=== PATIENT | female | born 1970 | race Caucasian/White ===

== ENCOUNTER 2019-07-09 13:11 | Emergency (ER) | payer SELFPAY ==
[2019-07-09] MEDS ORDERED: Sodium Chloride 0.9% 1,000 ML IV ONE (13:31)
[2019-07-09 14:21] LABS: BLOOD UREA NITROGEN,BUN 11 mg/dL (7.0-18.0); CARBON DIOXIDE,CO2 24.1 mmol/L (21.0-32.0); CHLORIDE,CL 100 mmol/L (98-107); SODIUM,NA 134 mmol/L (136-145)
[2019-07-09 14:29] LABS: GLUCOSE RANDOM 537 mg/dL (74-106)
--- NOTE | 2019-07-09 14:46 | CR ---
Left knee: AP and lateral views left knee were obtained. Comparison: No prior left knee exam. Joint spaces are not seen well in profile. Within this limitation, there is felt to be minimal medial joint space narrowing as compared the lateral joint. No joint effusion is seen. No discrete fracture or other abnormality is appreciated. Impression: 1. Minimal medial joint space narrowing is suggested. 2. No definite acute abnormality is appreciated on this 2 view left knee exam. Diagnostic code #2 This report was dictated in [place] Standard Time
--- NOTE | 2019-07-09 14:46 | CR ---
Right knee: AP and lateral views of the right knee were obtained. Comparison: No prior right knee imaging is available. Medial joint not well seen in profile but felt to be minimally narrowed as compared to the lateral joint. Surgical clips are seen within the posterior soft tissues. No joint effusion is seen. No acute fracture or other bony abnormality is identified. Impression: 1. Probable minimal narrowing of the medial joint. 2. No definite acute abnormality is appreciated. Diagnostic code #2 This report was dictated in [place] Standard Time
--- NOTE | 2019-07-09 14:57 | CT ---
Head CT Technique: Multiple axial sections through the brain were obtained. Intravenous contrast was not utilized. Comparison: No prior intracranial imaging is available. Findings: Ventricles along with basal cisterns and sulci over the convexities appear within normal limits for the patient's age. No abnormal parenchymal densities are seen. No evidence of intracranial hemorrhage. No midline shift or mass-effect is seen. Bone window settings were reviewed. Visualized mastoid sinuses show nothing acute. Mild mucosal thickening is seen within portions of the ethmoid and maxillary sinuses. No acute calvarial abnormality is appreciated. Impression: 1. Mild paranasal sinus findings most likely representing mild chronic sinusitis. 2. No acute intracranial abnormality is identified. Diagnostic code #2 This report was dictated in [place] Standard Time
--- NOTE | 2019-07-09 15:02 | CT ---
CT facial bones Technique: Multiple axial sections through the facial bones were obtained. Reconstructed coronal and sagittal images were reviewed. Comparison: No prior facial bone exam. Findings: Mild mucosal thickening is seen within the ethmoid sinuses and within both maxillary sinuses. Prior cervical spine surgery is noted. Right and left globes are symmetric. No retrobulbar abnormality is seen. Mild nasal septal deviation is seen. No facial bone fracture is appreciated. Impression: 1. Probable mild chronic sinusitis. 2. Mild nasal septal deviation and prior cervical spine surgery. 3. Nothing acute is seen on CT study of the facial bones. Diagnostic code #2 This report was dictated in [place] Standard Time
--- NOTE | 2019-07-09 15:07 | EDM.PDOC ---
ED HPI GENERAL MEDICAL PROBLEM - General Chief Complaint: General Stated Complaint: FALL Time Seen by Provider: 07/09/19 13:22 Source of Information: Reports: Patient - History of Present Illness INITIAL COMMENTS - FREE TEXT/NARRATIVE: Pt with pmh of type 1 DM presents after a fall. Pt reports tripping on a step and falling striking both knees and her upper face. No LOC. Pt reports not being able to afford her insulin due to lack of insurance for the last month and her bg has been in the 500 range during this time. no other complaints. face Pain Score (Numeric/FACES): 6 - Related Data Allergies Allergy/AdvReac Type Severity Reaction Status Date / Time erythromycin base Allergy Tachycardia Verified 07/09/19 13:20 naproxen Allergy Tachycardia Verified 07/09/19 13:20 Home Meds: Home Meds . [No Known Home Meds] 07/09/19 [History] Past Medical History Other Musculoskeletal History: c7 fusion Endocrine/Metabolic History: Reports: Diabetes, Type I - Infectious Disease History Infectious Disease History: Reports: Chicken Pox - Past Surgical History HEENT Surgical History: Reports: Tonsillectomy Social & Family History - Family History Family Medical History: Noncontributory - Tobacco Use Smoking Status *Q: Never Smoker - Recreational Drug Use Recreational Drug Use: No ED ROS GENERAL - Review of Systems Review Of Systems: See Below Constitutional: Reports: No Symptoms Respiratory: Reports: No Symptoms Cardiovascular: Reports: No Symptoms Endocrine: Reports: High Glucose. Denies: Polydypsia, Polyuria GI/Abdominal: Reports: No Symptoms Musculoskeletal: Reports: Joint Pain Neurological: Reports: No Symptoms ED EXAM, GENERAL - Physical Exam Exam: See Below General Appearance: Alert, WD/WN, No Apparent Distress Nose: Other (abrasion, no septal hematoma) Throat/Mouth: Other (tooth #9 has garzon II partial fracture) Head: Atraumatic, Normocephalic Neck: Normal Inspection, Non-Tender, Full Range of Motion. No: Tender Midline Respiratory/Chest: No Respiratory Distress, Lungs Clear, Normal Breath Sounds Cardiovascular: Regular Rate, Rhythm, No Murmur GI/Abdominal: Soft, Non-Tender, No Distention Extremities: Other (knees ttp) Neurological: Alert, Oriented, Normal Cognition, Normal Gait ED GENERAL MEDICAL PROCEDURES - Additional/Other Procedure(s) Other (Free Text) Procedure(s): Partial Garzon II fracture of tooth 9 filled with calcium hydroxide paste. Layer of dermabond applied for adhesive. Course - Vital Signs Last Recorded V/S: Last Vital Signs Temp 96.4 F L 07/09/19 13:20 Pulse 75 07/09/19 13:20 Resp 16 07/09/19 13:20 BP 136/71 07/09/19 13:20 Pulse Ox 98 07/09/19 13:20 - Orders/Labs/Meds Labs: Laboratory Tests 07/09/19 07/09/19 07/09/19 Range/Units 13:40 13:40 13:40 WBC 9.01 (4.0-11.0) K/uL RBC 4.95 (4.30-5.90) M/uL Hgb 13.5 (12.0-16.0) g/dL Hct 41.1 (36.0-46.0) % MCV 83.0 (80.0-98.0) fL MCH 27.3 (27.0-32.0) pg MCHC 32.8 (31.0-37.0) g/dL RDW Std Deviation 45.1 (28.0-62.0) fl RDW Coeff of José Manuel 15 (11.0-15.0) % Plt Count 307 (150-400) K/uL MPV 12.00 (7.40-12.00) fL Neut % (Auto) 60.3 (48.0-80.0) % Lymph % (Auto) 24.1 (16.0-40.0) % [place] % (Auto) 8.4 (0.0-15.0) % Eos % (Auto) 6.3 (0.0-7.0) % Baso % (Auto) 0.9 (0.0-1.5) % Neut # (Auto) 5.4 (1.4-5.7) K/uL Lymph # (Auto) 2.2 (0.6-2.4) K/uL [place] # (Auto) 0.8 (0.0-0.8) K/uL Eos # (Auto) 0.6 (0.0-0.7) K/uL Baso # (Auto) 0.1 (0.0-0.1) K/uL Nucleated RBC % 0.0 /100WBC Nucleated RBCs # 0 K/uL Sodium 134 L (136-145) mmol/L Potassium 4.0 (3.5-5.1) mmol/L Chloride 100 (98-107) mmol/L Carbon Dioxide 24.1 (21.0-32.0) mmol/L BUN 11 (7.0-18.0) mg/dL Creatinine 0.7 (0.6-1.0) mg/dL Est Cr Clr Drug Dosing 93.01 mL/min Estimated GFR (MDRD) > 60.0 ml/min Glucose 537 H* (74-106) mg/dL POC Glucose (60-110) mg/dL Calcium 9.1 (8.5-10.1) mg/dL Total Bilirubin 0.3 (0.2-1.0) mg/dL AST 10 L (15-37) IU/L ALT 18 (14-63) IU/L Alkaline Phosphatase 95 (46-116) U/L Total Protein 7.4 (6.4-8.2) g/dL Albumin 3.7 (3.4-5.0) g/dL Globulin 3.7 (2.6-4.0) g/dL Albumin/Globulin Ratio 1.0 (0.9-1.6) Ketones NEGATIVE (NEG) 07/09/19 07/09/19 Range/Units 15:37 16:15 WBC (4.0-11.0) K/uL RBC (4.30-5.90) M/uL Hgb (12.0-16.0) g/dL Hct (36.0-46.0) % MCV (80.0-98.0) fL MCH (27.0-32.0) pg MCHC (31.0-37.0) g/dL RDW Std Deviation (28.0-62.0) fl RDW Coeff of José Manuel (11.0-15.0) % Plt Count (150-400) K/uL MPV (7.40-12.00) fL Neut % (Auto) (48.0-80.0) % Lymph % (Auto) (16.0-40.0) % [place]eman % (Auto) (0.0-15.0) % Eos % (Auto) (0.0-7.0) % Baso % (Auto) (0.0-1.5) % Neut # (Auto) (1.4-5.7) K/uL Lymph # (Auto) (0.6-2.4) K/uL Hardeman # (Auto) (0.0-0.8) K/uL Eos # (Auto) (0.0-0.7) K/uL Baso # (Auto) (0.0-0.1) K/uL Nucleated RBC % /100WBC Nucleated RBCs # K/uL Sodium (136-145) mmol/L Potassium (3.5-5.1) mmol/L Chloride (98-107) mmol/L Carbon Dioxide (21.0-32.0) mmol/L BUN (7.0-18.0) mg/dL Creatinine (0.6-1.0) mg/dL Est Cr Clr Drug Dosing mL/min Estimated GFR (MDRD) ml/min Glucose (74-106) mg/dL POC Glucose 333 H 317 H (60-110) mg/dL Calcium (8.5-10.1) mg/dL Total Bilirubin (0.2-1.0) mg/dL AST (15-37) IU/L ALT (14-63) IU/L Alkaline Phosphatase (46-116) U/L Total Protein (6.4-8.2) g/dL Albumin (3.4-5.0) g/dL Globulin (2.6-4.0) g/dL Albumin/Globulin Ratio (0.9-1.6) Ketones (NEG) Meds: Medications Discontinued Medications Generic Name Dose Route Start Last Admin Trade Name Kashq PRN Reason Stop Dose Admin Sodium Chloride 1,000 mls @ 999 mls/hr 07/09/19 13:31 07/09/19 14:05 Normal Saline IV 07/09/19 14:31 999 mls/hr BOLUS ONE Administration Insulin Aspart 0 unit 07/09/19 15:30 07/09/19 15:42 Novolog SUBCUT 07/09/19 15:31 8 units TIDAC ONE Administration Protocol Ketorolac Tromethamine 30 mg 07/09/19 15:21 07/09/19 15:27 Toradol IVPUSH 07/09/19 15:22 30 mg ONETIME ONE Administration Octyl Cyanoacrylate 1 applic 07/09/19 15:56 07/09/19 16:18 Dermabond Advance TOP 07/09/19 15:57 1 applic ONETIME ONE Administration Octyl Cyanoacrylate Confirm 07/09/19 15:57 07/09/19 16:11 Dermabond Advance Administered 07/09/19 15:58 Not Given Dose 1 applic .ROUTE .STK-MED ONE - Re-Assessments/Exams Free Text/Narrative Re-Assessment/Exam: VS stable and PE as above. ED work up with labs and imaging unremarkable. Dental fracture sealed as above. Pt given Novolog pen and she understands its use and her TIDAC and SS doses. pt provided with dental followup and diabetic resources. Pt feels improved and is comfortable with discharge. Strict return precautions discussed should symptoms worsen or any concerns arise. Departure - Departure Time of Disposition: 16:05 Disposition: Home, Self-Care 01 Condition: Good Clinical Impression: Fall, Tooth fracture, Hyperglycemia due to type 1 diabetes mellitus - Discharge Information *PRESCRIPTION DRUG MONITORING PROGRAM REVIEWED*: Not Applicable *COPY OF PRESCRIPTION DRUG MONITORING REPORT IN PATIENT TRAM: Not Applicable Instructions: Hyperglycemia, [id number], Tooth Injuries Referrals: PCP,None [Primary Care Provider] - Forms: ED Department Discharge Additional Instructions: My general discharge The following information is given to patients seen in the emergency department who are being discharged to home. This information is to outline your options for follow-up care. We provide all patients seen in our emergency department with a follow-up referral. The need for follow-up, as well as the timing and circumstances, are variable depending upon the specifics of your emergency department visit. If you don't have a primary care physician on staff, we will provide you with a referral. We always advise you to contact your personal physician following an emergency department visit to inform them of the circumstance of the visit and for follow-up with them and/or the need for any referrals to a consulting specialist. The emergency department will also refer you to a specialist when appropriate. This referral assures that you have the opportunity for follow-up care with a specialist. All of these measure are taken in an effort to provide you with optimal care, which includes your follow-up. Under all circumstances we always encourage you to contact your private physician who remains a resource for coordinating your care. When calling for follow-up care, please make the office aware that this follow-up is from your recent emergency room visit. If for any reason you are refused follow-up, please contact the [facility] Emergency Department at and asked to speak to the emergency department charge nurse. Sepsis Event Note - Evaluation Sepsis Screening Result: No Definite Risk - Focused Exam Vital Signs: Vital Signs Temp Pulse Resp BP Pulse Ox 07/09/19 13:20 96.4 F L 75 16 136/71 98 Date Exam was Performed: 07/09/19 Time Exam was Performed: 20:07
[2019-07-09] MEDS ORDERED: Ketorolac 30 MG/ML SDV IVPUSH ONE (15:21)
[2019-07-09] MEDS ORDERED: Insulin Aspart 100 Units/ML 3 ML Pen SUBCUT ONE ×2 (15:26→15:30)
[2019-07-09] MEDS ORDERED: Octyl 2-Cyanoacrylate 1 Tube TOP ONE (15:56)
[2019-07-09] MEDS ORDERED: Octyl 2-Cyanoacrylate 1 Tube ONE (15:57)
== END 2019-07-09 16:18 | disposition home or self-care (01) ==
LOC: MW.ED 13:11
DX: S02.5XXA Fracture of tooth (traumatic), initial encounter for closed fracture (principal); E10.65 Type 1 diabetes mellitus with hyperglycemia; Z88.8 Allergy status to other drugs, medicaments and biological substances; W01.10XA Fall on same level from slipping, tripping and stumbling with subsequent striking against unspecified object, initial encounter
CPT/HCPCS: 36415; 70450; 70486; 73560; 80053; 82009; 82962; 85025; 93005; 96361; 96374; 99284; A9270; J1815; J1885; J7030

== ENCOUNTER 2021-04-13 17:19 | Emergency (ER) | payer BC ==
[2021-04-13] MEDS ORDERED: Sulfamethoxazole/Trimethoprim 800-160 MG Tab PO ONE (18:30)
--- NOTE | 2021-04-13 18:35 | EDM.PDOC ---
ED HPI GENERAL MEDICAL PROBLEM - General Chief Complaint: Skin Complaint Stated Complaint: INGROWN HAIR POSSIBLY INFECTED Time Seen by Provider: 04/13/21 18:27 - History of Present Illness INITIAL COMMENTS - FREE TEXT/NARRATIVE: HISTORY AND PHYSICAL: History of present illness: Is a 51-year-old female who presents ER today secondary to draining, redness and pain to her right axilla x2 to 3 days. Patient reports she has had these in the past. Patient reports that started draining yesterday. Patient reports that she had some pain and discomfort in that area. Patient reports that it feels warm to touch at night. Patient has any recent fevers, shakes, chills, nausea, vomiting, diarrhea. Patient denies any other symptomatology at this time. Patient does have a history of type 1 diabetes. Review of systems: As per history of present illness and below otherwise all systems reviewed and negative. Past medical history: As per history of present illness and as reviewed below otherwise noncontributory. Surgical history: As per history of present illness and as reviewed below otherwise noncontributory. Social history: No reported history of drug abuse. Family history: As per history of present illness and as reviewed below otherwise noncontributory. Physical exam: This patient was seen and evaluated during the 2019 SARS-CoV-2 novel coronavirus pandemic period. Community viral transmission is ongoing at time of this encounter and the emergency department is operating under pandemic response procedures. Constitutional: Patient is oriented to person, place, and time. Appears well- developed and well-nourished. No distress. HEENT: Moist mucous membranes Head: Normocephalic and atraumatic Eyes: Right eye exhibits no discharge. Left eye exhibits no discharge. No scleral icterus Neck: Normal range of motion. No tracheal deviation present. Cardiovascular: Normal rate and regular rhythm. Pulmonary: Effort normal, no respiratory distress. Abdominal: No distention Musculoskeletal: Normal range of motion Neurologic: Alert and oriented to person, place and time. Skin: [place], warm and dry. Psychiatric: Normal mood and affect. Behavior is normal. Judgment and thought content normal. Nursing note and vital signs have been reviewed Patient's ER physical exam is significant for a draining abscess that is about 3 x 3 cm with induration to the right axilla. I am unable to express a small amount of purulent material from the abscess. There is no fluctuance at this time. Diagnostics: [] Therapeutics: [] Assessment and plan: 51-year-old female who presents ER today with a history of diabetes and a right axillary abscess. It is currently draining. I have advised patient to continue warm soaks to the area and frequent bath to keep the area open. Patient will get started on Bactrim DS 2 tablets p.o. twice daily x10 days. Patient is to continue taking acetaminophen as needed for pain and discomfort. Patient is afebrile and is otherwise clinically hemodynamically stable for outpatient evaluation. Definitive disposition and diagnosis as appropriate pending reevaluation and review of above. - Related Data Allergies Allergy/AdvReac Type Severity Reaction Status Date / Time erythromycin base Allergy Tachycardia Verified 04/13/21 18:28 naproxen Allergy Tachycardia Verified 04/13/21 18:28 Home Meds: Home Meds Sulfamethoxazole/Trimethoprim [Bactrim Ds Tablet] 2 each PO BID #40 tablet 04/13/21 [Rx] Past Medical History Other Musculoskeletal History: c7 fusion Endocrine/Metabolic History: Reports: Diabetes, Type I - Infectious Disease History Infectious Disease History: Reports: Chicken Pox - Past Surgical History HEENT Surgical History: Reports: Tonsillectomy Social & Family History - Family History Family Medical History: No Pertinent Family History ED ROS GENERAL - Review of Systems Review Of Systems: See Below ED EXAM, SKIN/RASH Exam: See Below Course - Orders/Labs/Meds Orders: Active Orders 24 hr Category Date Time Status Sulfamethoxazole/Trimethoprim [Septra DS] Med 04/13/21 18:30 Once 2 tab PO ONETIME ONE Departure - Departure Time of Disposition: 18:33 Disposition: Home, Self-Care 01 Condition: Good Clinical Impression: Abscess - Discharge Information Instructions: Skin Abscess Additional Instructions: You were seen and evaluated in the ER today secondary to a skin abscess in your right armpit. You'll get started on Bactrim DS 2 tablets twice a day for 10 days. You can take acetaminophen as needed for pain discomfort. Please do your best to continue draining the abscess. You can apply warm soaks to the area and take frequent baths. You can stimulate the area by rubbing a warm cloth over the abscess. Please make an appointment to see your family doctor in 2 to 3 days for reevaluation. Please return to the ER if you start developing any new or concerning symptoms such as fever, increasing swelling or increasing pain. The following information is given to patients seen in the emergency department who are being discharged to home. This information is to outline your options for follow-up care. We provide all patients seen in our emergency department with a follow-up referral. The need for follow-up, as well as the timing and circumstances, are variable depending upon the specifics of your emergency department visit. If you don't have a primary care physician on staff, we will provide you with a referral. We always advise you to contact your personal physician following an emergency department visit to inform them of the circumstance of the visit and for follow-up with them and/or the need for any referrals to a consulting specialist. The emergency department will also refer you to a specialist when appropriate. This referral assures that you have the opportunity for follow-up care with a specialist. All of these measure are taken in an effort to provide you with optimal care, which includes your follow-up. Under all circumstances we always encourage you to contact your private physician who remains a resource for coordinating your care. When calling for follow-up care, please make the office aware that this follow-up is from your recent emergency room visit. If for any reason you are refused follow-up, please contact the [facility] Emergency Department at and asked to speak to the emergency department charge nurse. [facility] - Primary [facility] [address] [place] [address] [place] [address] - My Orders Last 24 Hours: My Active Orders 04/13/21 18:30 Sulfamethoxazole/Trimethoprim [Septra DS] 2 tab PO ONETIME ONE - Assessment/Plan Last 24 Hours: My Active Orders 04/13/21 18:30 Sulfamethoxazole/Trimethoprim [Septra DS] 2 tab PO ONETIME ONE
== END 2021-04-13 18:51 | disposition home or self-care (01) ==
LOC: MW.ED 17:19
DX: L02.411 Cutaneous abscess of right axilla (principal); E10.9 Type 1 diabetes mellitus without complications; Z88.1 Allergy status to other antibiotic agents; Z88.5 Allergy status to narcotic agent
CPT/HCPCS: 82947; 99283; A9270

== ENCOUNTER 2021-07-29 19:52 | Inpatient (IN) | payer SELFPAY ==
[2021-07-29] MEDS ORDERED: Lactated Ringers 1,000 ML IV STA ×2 (21:14→21:30)
[2021-07-29] MEDS ORDERED: VANCOmycin 2 GM/400 ML 2 GM in Premix Bag 1 BAG IV ONE (21:45)
[2021-07-29 22:07] LABS: BLOOD UREA NITROGEN,BUN 7 mg/dL (7.0-18.0); CARBON DIOXIDE,CO2 10.9 mmol/L (21.0-32.0); CHLORIDE,CL 94 mmol/L (98-107); GLUCOSE RANDOM 372 mg/dL (74-106); POTASSIUM,K 3.2 mmol/L (3.5-5.1); SODIUM,NA 128 mmol/L (136-145)
[2021-07-29] MEDS ORDERED: Insulin Regular in 0.9 % NACL 100 ML IV STA (22:12)
[2021-07-30] MEDS ORDERED: Potassium Chloride 40 MEQ in Dextrose 5%-Lactated Ringers 1,000 ML IV STA (00:10)
[2021-07-30 01:48] LABS: BLOOD UREA NITROGEN,BUN 6 mg/dL (7.0-18.0); CARBON DIOXIDE,CO2 9.5 mmol/L (21.0-32.0); CHLORIDE,CL 103 mmol/L (98-107); GLUCOSE RANDOM 275 mg/dL (74-106); POTASSIUM,K 2.9 mmol/L (3.5-5.1); SODIUM,NA 133 mmol/L (136-145)
[2021-07-30] MEDS: Insulin Regular in 0.9 % NACL 100 ML IV SCH ×2 (02:08→21:04)
[2021-07-30] MEDS ORDERED: Potassium Chloride 20 MEQ Tab.ER PO ONE ×3 (02:19→14:15)
[2021-07-30] MEDS ORDERED: Sodium Chloride 0.9% with KCl 1,000 ML IV SCH (02:30)
[2021-07-30] MEDS ORDERED: ceFAZolin/Dextrose,Iso-Osmotic 2 GM/50 ML Duplex Bag (Premix) IV SCH (06:30)
[2021-07-30 07:28] LABS: BLOOD UREA NITROGEN,BUN 6 mg/dL (7.0-18.0); CARBON DIOXIDE,CO2 14.8 mmol/L (21.0-32.0); CHLORIDE,CL 104 mmol/L (98-107); GLUCOSE RANDOM 255 mg/dL (74-106); POTASSIUM,K 2.7 mmol/L (3.5-5.1); SODIUM,NA 134 mmol/L (136-145)
[2021-07-30] MEDS ORDERED: Potassium Phos,M-Basic-D-Basic 3 MMOL/ML VIAL IV ONE ×2 (07:49→22:17)
[2021-07-30] MEDS ORDERED: Potassium Phosphates 30 MMOLE in Sodium Chloride 0.9% 250 ML IV ONE ×2 (08:30→10:30)
[2021-07-30] MEDS: Enoxaparin 40 MG/0.4 ML Syringe SUBCUT SCH (09:01)
[2021-07-30] MEDS: VANCOmycin 1.5 GM/300 ML 1.5 GM in Premix Bag 1 BAG IV SCH ×2 (09:02→22:29)
[2021-07-30] MEDS: Dextrose 5%-0.45% NaCl 1,000 ML IV SCH ×2 (10:15→17:35)
[2021-07-30] MEDS: Acetaminophen 325 MG Tab PO PRN ×2 (11:49→20:50)
[2021-07-30 13:50] LABS: BLOOD UREA NITROGEN,BUN 5 mg/dL (7.0-18.0); CARBON DIOXIDE,CO2 16.5 mmol/L (21.0-32.0); CHLORIDE,CL 106 mmol/L (98-107); GLUCOSE RANDOM 246 mg/dL (74-106); POTASSIUM,K 3.2 mmol/L (3.5-5.1); SODIUM,NA 135 mmol/L (136-145)
[2021-07-30] MEDS ORDERED: Lidocaine 1% PF 2 ML SDV INJECT ONE (14:45)
[2021-07-30] MEDS ORDERED: Lidocaine 1% 20 ML MDV ONE (16:38)
[2021-07-30 20:07] LABS: BLOOD UREA NITROGEN,BUN 3 mg/dL (7.0-18.0); CARBON DIOXIDE,CO2 19.1 mmol/L (21.0-32.0); CHLORIDE,CL 104 mmol/L (98-107); GLUCOSE RANDOM 259 mg/dL (74-106); POTASSIUM,K 2.8 mmol/L (3.5-5.1); SODIUM,NA 136 mmol/L (136-145)
[2021-07-30] MEDS ORDERED: Magnesium Sulfate (4.06 MEQ/ML) 5 GM/10 ML SDV IV ONE (22:43)
[2021-07-30] MEDS ORDERED: Magnesium Sulfate/Water 50 ML ONE (23:24)
[2021-07-31] MEDS: Dextrose 5%-0.45% NaCl 1,000 ML IV SCH ×3 (00:16→13:34)
[2021-07-31] MEDS ORDERED: Potassium Chloride 20 MEQ Tab.ER PO ONE ×2 (00:26→19:26)
[2021-07-31 01:25] LABS: BLOOD UREA NITROGEN,BUN 3 mg/dL (7.0-18.0); CARBON DIOXIDE,CO2 19.5 mmol/L (21.0-32.0); CHLORIDE,CL 104 mmol/L (98-107); GLUCOSE RANDOM 206 mg/dL (74-106); SODIUM,NA 135 mmol/L (136-145)
[2021-07-31 01:27] LABS: POTASSIUM,K 2.3 mmol/L (3.5-5.1)
[2021-07-31] MEDS: Phosphorus #1 250 MG Tab PO SCH ×3 (05:41→18:45)
[2021-07-31 06:20] LABS: BLOOD UREA NITROGEN,BUN 2 mg/dL (7.0-18.0); CARBON DIOXIDE,CO2 17.9 mmol/L (21.0-32.0); CHLORIDE,CL 104 mmol/L (98-107); GLUCOSE RANDOM 306 mg/dL (74-106); POTASSIUM,K 3.3 mmol/L (3.5-5.1); SODIUM,NA 136 mmol/L (136-145)
[2021-07-31] MEDS ORDERED: Potassium Chloride Riders 40 MEQ in Premix Bag 1 BAG IV ONE ×2 (06:28→14:50)
[2021-07-31] MEDS: Enoxaparin 40 MG/0.4 ML Syringe SUBCUT SCH (09:16)
[2021-07-31 09:32] LABS: BLOOD UREA NITROGEN,BUN 2 mg/dL (7.0-18.0); CARBON DIOXIDE,CO2 20.4 mmol/L (21.0-32.0); CHLORIDE,CL 104 mmol/L (98-107); GLUCOSE RANDOM 287 mg/dL (74-106); POTASSIUM,K 3.3 mmol/L (3.5-5.1); SODIUM,NA 137 mmol/L (136-145)
[2021-07-31] MEDS: VANCOmycin 1.5 GM/300 ML 1.5 GM in Premix Bag 1 BAG IV SCH ×2 (10:50→22:37)
[2021-07-31 13:20] LABS: BLOOD UREA NITROGEN,BUN 1 mg/dL (7.0-18.0); CHLORIDE,CL 105 mmol/L (98-107); GLUCOSE RANDOM 211 mg/dL (74-106); POTASSIUM,K 2.9 mmol/L (3.5-5.1); SODIUM,NA 139 mmol/L (136-145)
[2021-07-31] MEDS ORDERED: Lactated Ringers 1,000 ML IV ONE (13:54)
[2021-07-31] MEDS ORDERED: Glucagon,Human Recombinant 1 MG Vial IM PRN (13:55)
[2021-07-31] MEDS ORDERED: 50% Dextrose in Water 50 ML Syringe IVPUSH PRN (13:55)
[2021-07-31] MEDS ORDERED: Insulin Glargine,Human Rec. Analog 100 Units/ML 3 ML Pen SUBCUT ONE (13:56)
[2021-07-31] MEDS ORDERED: Lactated Ringers 1,000 ML IV SCH (15:00)
[2021-07-31 19:03] LABS: BLOOD UREA NITROGEN,BUN 1 mg/dL (7.0-18.0); CARBON DIOXIDE,CO2 21.3 mmol/L (21.0-32.0); CHLORIDE,CL 105 mmol/L (98-107); GLUCOSE RANDOM 171 mg/dL (74-106); POTASSIUM,K 3.4 mmol/L (3.5-5.1); SODIUM,NA 139 mmol/L (136-145)
[2021-08-01 07:20] LABS: BLOOD UREA NITROGEN,BUN 1 mg/dL (7.0-18.0); CARBON DIOXIDE,CO2 24.4 mmol/L (21.0-32.0); CHLORIDE,CL 105 mmol/L (98-107); GLUCOSE RANDOM 148 mg/dL (74-106); POTASSIUM,K 2.9 mmol/L (3.5-5.1); SODIUM,NA 141 mmol/L (136-145)
[2021-08-01] MEDS: Acetaminophen 325 MG Tab PO PRN (08:13)
[2021-08-01] MEDS ORDERED: Sodium Chloride 0.9% with KCl 1,000 ML IV ONE (08:30)
[2021-08-01] MEDS ORDERED: Magnesium Sulfate/Water 2 GM in Premix Bag 1 BAG IV ONE (08:30)
[2021-08-01] MEDS: Potassium Chloride 20 MEQ Tab.ER PO SCH ×2 (09:45→14:00)
[2021-08-01] MEDS: Enoxaparin 40 MG/0.4 ML Syringe SUBCUT SCH (09:47)
[2021-08-01] MEDS ORDERED: VANCOmycin 1.5 GM/300 ML 1.5 GM in Premix Bag 1 BAG IV SCH (11:30)
[2021-08-01] MEDS: VANCOmycin 1.5 GM/300 ML 1.5 GM in Premix Bag 1 BAG IV SCH (11:37)
== END 2021-08-01 18:40 | disposition home or self-care (01) | DRG 638 ==
LOC: MW.ED 19:52 → MW.ICU 23:41 → MW.MS 07-31 21:51
PROVIDERS: ADMIT Internal Medicine; ATTEND Internal Medicine
PROC: 0X950ZZ Drainage of Left Axilla, Open Approach (ICD-10-PCS; principal; 2021-07-30)
DX: E10.628 Type 1 diabetes mellitus with other skin complications (principal); L02.412 Cutaneous abscess of left axilla; L03.313 Cellulitis of chest wall; E87.1 Hypo-osmolality and hyponatremia; E10.10 Type 1 diabetes mellitus with ketoacidosis without coma; Z20.822 Contact with and (suspected) exposure to COVID-19; E78.00 Pure hypercholesterolemia, unspecified; F32.A Depression, unspecified; E87.6 Hypokalemia; E83.39 Other disorders of phosphorus metabolism; Z88.1 Allergy status to other antibiotic agents; Z88.5 Allergy status to narcotic agent; Z90.89 Acquired absence of other organs
CPT/HCPCS: 36415; 71045; 71045-26; 76642-LT; 76642-LT-26; 80048; 80053; 80202; 81001; 82009; 82803; 82947; 83036; 83605; 83735; 84100; 84484; 85025; 85610; 87040; 87070; 87077; 87147; 87186; 87205; 93005; 93010; 96365; 99285; 99291; 99292; A9270-GY; J0690; J1650; J1815; J1815-GY; J3370; J3475; J3480; J7042; J7050; J7120; J7121; U0002

== ENCOUNTER 2022-03-06 08:16 | Day surgery (SDC) | payer BC ==
[2022-03-06] MEDS ORDERED: Propofol 200 MG/20 ML SDV ONE (09:56)
[2022-03-06] MEDS ORDERED: Lactated Ringers 1,000 ML IV SCH (10:00)
[2022-03-06] MEDS ORDERED: Ondansetron 4 MG/2 ML SDV ONE (10:34)
== END 2022-03-06 12:03 | disposition home or self-care (01) ==
LOC: MW.SDS 08:16
PROVIDERS: ATTEND Surgery
DX: K59.00 Constipation, unspecified (principal); E10.9 Type 1 diabetes mellitus without complications; G47.30 Sleep apnea, unspecified; F41.9 Anxiety disorder, unspecified; F32.A Depression, unspecified; Z98.890 Other specified postprocedural states; Z88.8 Allergy status to other drugs, medicaments and biological substances; E66.9 Obesity, unspecified
CPT/HCPCS: 45378; 82947; J2405; J2704; J7120

== ENCOUNTER 2023-09-01 06:34 | Day surgery (SDC) | payer BC ==
[2023-09-01] MEDS: Lactated Ringers 1,000 ML IV SCH (07:15)
[2023-09-01] MEDS ORDERED: propofoL 50 ML ONE (07:22)
[2023-09-01] MEDS ORDERED: Propofol 200 MG/20 ML SDV ONE (08:19)
== END 2023-09-01 09:12 | disposition home or self-care (01) ==
LOC: MW.SDS 06:34
PROVIDERS: ATTEND Surgery
DX: Z12.11 Encounter for screening for malignant neoplasm of colon (principal); F41.8 Other specified anxiety disorders; E10.9 Type 1 diabetes mellitus without complications; E10.10 Type 1 diabetes mellitus with ketoacidosis without coma; Z86.14 Personal history of Methicillin resistant Staphylococcus aureus infection; E78.5 Hyperlipidemia, unspecified; D50.9 Iron deficiency anemia, unspecified; E66.01 Morbid (severe) obesity due to excess calories; J30.2 Other seasonal allergic rhinitis; G47.33 Obstructive sleep apnea (adult) (pediatric); E55.9 Vitamin D deficiency, unspecified; Z88.6 Allergy status to analgesic agent; Z88.1 Allergy status to other antibiotic agents; Z79.82 Long term (current) use of aspirin; Z68.42 Body mass index [BMI] 45.0-49.9, adult; Z79.890 Hormone replacement therapy; Z79.4 Long term (current) use of insulin; Z79.899 Other long term (current) drug therapy
CPT/HCPCS: 45378; J2704; J7120

== ENCOUNTER 2023-12-22 21:46 | Emergency (ER) | payer BC ==
[2023-12-22] MEDS: Acetaminophen/HYDROcodone 325-5 MG Tab PO ONE (22:12)
== END 2023-12-22 23:20 | disposition home or self-care (01) ==
LOC: MW.ED 21:46
DX: S90.121A Contusion of right lesser toe(s) without damage to nail, initial encounter (principal); E66.9 Obesity, unspecified; E10.9 Type 1 diabetes mellitus without complications; Z88.8 Allergy status to other drugs, medicaments and biological substances; Z79.82 Long term (current) use of aspirin; Z79.899 Other long term (current) drug therapy; Z90.49 Acquired absence of other specified parts of digestive tract; Z75.8 Other problems related to medical facilities and other health care; Z68.41 Body mass index [BMI] 40.0-44.9, adult; W20.8XXA Other cause of strike by thrown, projected or falling object, initial encounter
CPT/HCPCS: 73630; 99283; A9270